=== PATIENT | female | born 1935 ===

== ENCOUNTER → 2017-08-16 | Emergency (ER) | payer OTHER ==
[~2017-08-16] VITALS: Ht 165.1 cm; Wt 68.9 kg
[~2017-08-16] MED LIST: ATENOLOL50 MG PO; IMDUR 30 MG; LIPITOR40 MG PO; LIPO-FLAVONOID1 EACH; NAMENDA5 MG; PLAVIX75 MG; RIVASTIGMINE4.5 MG
== END | disposition home or self-care (01) ==
LOC: ER 09:29
DX: B34.9 Viral infection, unspecified (principal); J11.1 Influenza due to unidentified influenza virus with other respiratory manifestations

== ENCOUNTER 2018-09-23 16:13 | Emergency (ER) | payer OTHER ==
[~2018-09-23] VITALS: Ht 167.6 cm; Wt 79.4 kg
[2018-09-23] MEDS ORDERED: CRESTOR5 MG (16:54)
[2018-09-23] MEDS ORDERED: EXELON1 EACH (16:55)
== END 2018-09-23 21:30 | disposition home or self-care (01) ==
LOC: ER 16:13
DX: M16.12 Unilateral primary osteoarthritis, left hip (principal); M25.552 Pain in left hip

== ENCOUNTER 2019-03-15 12:00 | Emergency (ER) | payer OTHER ==
[~2019-03-15] VITALS: Ht 160 cm; Wt 69.4 kg
[~2019-03-15 12:00] MED LIST changes: +CRESTOR5 MG; +EXELON1 EACH
== END 2019-03-15 22:49 | disposition home or self-care (01) ==
LOC: ER 12:00
DX: N39.0 Urinary tract infection, site not specified (principal); E86.0 Dehydration; K59.09 Other constipation